=== PATIENT | male | born 1970 | race Caucasian/White ===

== ENCOUNTER 2020-10-29 20:56 | Emergency (ER) | payer BC, SELFPAY ==
[2020-10-29 20:58] VITALS: BP 159/113; PULSE 123; RESP 18; TEMP 36; O2SAT 100; BMI 37.3
[2020-10-29 21:11] VITALS: BP 152/106; PULSE 121; RESP 22; O2SAT 96
--- NOTE | 2020-10-29 21:14 | EKG12_ITS ---
Test Reason : CP Blood Pressure : / mmHG Vent. Rate : 119 BPM Atrial Rate : 119 BPM P-R Int : 146 ms QRS Dur : 116 ms QT Int : 348 ms P-R-T Axes : 056 -05 162 degrees QTc Int : 489 ms Sinus tachycardia Left ventricular hypertrophy with QRS widening and repolarization abnormality Abnormal ECG Confirmed by MING PRICE, FISH ([id number]), staff editor TIM GARRIDO ([id number]) on 11/02/2020 9:02:41 AM Referred By: NEAL Confirmed By:FISH LAI MD
--- NOTE | 2020-10-29 21:15 | NURSING ---
patient states he does not want any needles. Explained to him he is here for chest pain and we need to check labs andhave to poke him anyway so we will do an IV to make it so we have access if needed for meds and states he does not want it. Explained to him we can wait for the doctor but we will check a troponin and other labs d/t his complaint of chest pain and he states he does not think it is necessary and want to wait for the doctor.
[2020-10-29 21:17] VITALS: O2SAT 95
[2020-10-29] MEDS: Aspirin 81 MG TAB.CHEW 324 MG PO (21:20)
--- NOTE | 2020-10-29 21:23 | ED.RN ---
patient still states he wont do the labs and explained we need to do the labs for us to be able to rule out heart attack or other abnodmalities with blood counts. Patient states he does not want the tests and he understands we cannot rule it out and he has sx that need the labs for appropriate work up and feel it is in his best interest to get the labs and he states ge still does not want the labs.
--- NOTE | 2020-10-29 21:28 | ED.VIS.CHEST ---
HPI History of Present Illness Chief Complaint: Chest Pain Informant: patient Onset/Context/Timing Onset: Today Quality: Positive for Aching Location: Substernal Current Severity: Gone Maximum Severity: Mild Worsened By: Nothing Relieved By: Nothing Associated Symptoms: Negative for Nausea, Vomiting, Diaphoresis, Dyspnea, Cough, Fever, Lightheadedness and Acid Reflux Narrative Narrative: Middle-age male visiting family in this area. He is originally from [place]. States he is under a lot of stress. He has a history of methamphetamine use and is used within the last 12 hours. Complaining of chest discomfort. He denies any cardiac history other than CHF. Denies ever having an MN, CAD, CABG or stent. Denies any hemoptysis. Denies any leg pain or swelling. Patient seems paranoid. He is anxious. He denies any recent exertional dyspnea or exertional chest pain. States when he had the pain it was substernal. It is since resolved. He initially refused work-up. But then would allow us to do the work-up because he was looking for a safe place to stay. Prior Similar Symptoms: No Recent Illness/Hospitalization: Yes CVD Risk Factors: Positive for Hypertension and Diabetes PE Risk Factors: Positive for Recent Travel/Surgery; Negative for Prior DVT or PE and OCP + Smoking + >/=35 TAD Risk Factors: Positive for Hypertension; Negative for Marfan's Syndrome PFSH PFS Home Medications carvedilol 12.5 mg PO DAILY 10/29/20 [History Last Taken Unknown] furosemide [Lasix] 40 mg PO BID 10/29/20 [History Last Taken Unknown] lisinopril 40 mg PO BID 10/29/20 [History Last Taken Unknown] Allergy/AdvReac Type Severity Reaction Status Date / Time No Known Allergies Allergy Verified 10/29/20 21:03 Social History Smoking Status: Never smoker ROS ROS ED ROS Narrative Denies recent illness. Review of Systems ROS Unobtainable: Denies due to encephalopathy Constitutional Constitutional ED: Denies chills or fever(s) Eyes Eyes: Denies none or blurry vision ENT ENT ED: Denies ear pain Cardiovascular Cardiovascular: Reports as per HPI and chest pain; Denies palpitations Respiratory/Chest Respiratory/Chest: Denies cough or dyspnea Gastrointestinal Gastrointestinal: Denies abdominal pain, diarrhea, nausea or vomiting Genitourinary Genitourinary ED: Denies dysuria or hematuria Musculoskeletal Musculoskeletal: Denies myalgias Integumentary Denies rash Neurologic Neurologic: Denies headache(s) Psychiatric Psychiatric: Denies depression Endocrine Endocrinology: Denies polyuria Hematologic/Lymphatic Hematologic/Lymphatic: Denies easy bruising Allergic/Immunologic Allergic/Immunologic ED: Denies urticaria EXAM Physical Exam Narrative Exam Narrative: Middle-age male. Limited informant. He states that there is people after which is causing a lot of stress. He states it is a scam. Vital signs are stable he is tachycardic to 123. Initial blood pressure 159/113. Pulse ox 9%. HEENT exam unremarkable. Neck nontender no lymphadenopathy. No JVD. Lungs auscultation bilaterally. Heart tachycardic rate 120 no murmur. Chest were nontender. Abdomen soft nontender. Extremities moves all 4. Calves are nontender without edema or cords. Neurologically is awake and alert with no focal motor deficits. Const Vital Signs: 10/29/20 20:58 10/29/20 21:08 10/29/20 21:11 Temperature 96.8 F L Temperature Source Temporal Pulse Rate 123 H 121 H Respiratory Rate 18 22 H Respiratory Effort Non-Labored Blood Pressure 159/113 H 152/106 H Blood Pressure Mean 128 121 Pulse Ox 100 96 Oxygen Delivery Method Room Air Room Air 10/29/20 21:17 10/29/20 21:38 Temperature Temperature Source Pulse Rate 118 H Respiratory Rate 28 H Respiratory Effort Blood Pressure 162/140 H Blood Pressure Mean 147 Pulse Ox 95 96 Oxygen Delivery Method Room Air Room Air Positive well nourished and well developed General Appearance ED: well developed; Negative for pallor HEENT Reports moist mucous membranes normocephalic and atraumatic; Negative for trauma or tenderness Eyes PERRL and EOMs intact bilaterally Neck no lymphadenopathy, supple and no JVD General: Negative for tenderness Chest Wall inspection of chest normal and palpation of chest normal Resp normal respiratory effort and clear to auscultation bilaterally Effort and Inspection: respiratory distress Auscultation: Negative for rales, rhonchi or wheezes Cardio regular rhythm, S1 normal heart sound, S2 normal heart sound and no murmurs Rate: tachycardic GI normal to inspection, nondistended, normoactive bowel sounds, soft to palpation, non-tender and non-distended Back/Spine no CVA tenderness Extremity normal to inspection General Extremety ED: Negative for edema or tenderness General Extremity: Negative for edema Neuro oriented x3 Sensorium / Orientation: awake, alert, oriented to person, oriented to place and oriented to time Motor Exam: strength 5/5 throughout Psych Psych Narrative: Speaking about being under a lot of stress. Talking about people pressuring him for their own financial gain. Mood & Affect: anxious Skin no rashes or lesions noted and no wounds General Skin Exam: Negative for jaundice or pallor Heart Score History: Moderately Suspicious ECG: Nonspecific Repolarization Age: >45 - <65 years Risk Factors: 1 or 2 Risk Factors Score: 4 MDM MDM MDM Narrative Medical decision making narrative: Middle-age male anxious with atypical chest pain but concerning due to his age and risk factors. He also has used methamphetamines recently. He will undergo cardiac work-up. Nurses attempted IV on the first stick it was unsuccessful. Patient pulled away and would not let them attempt any further IV placement or lab draws. I went back to further discuss that with the patient prior to me being able to get back to speak with him he left without being discharged or signing out AGAINST MEDICAL ADVICE. Radiography Chest X-Ray - ED: 1 View, Read by ED Physician, Read by Radiologist, Heart, Lungs, Mediastinum, Bony Structures and No Acute Disease Diagnostic Testing: Radiology Impression Chest X-Ray 10/29/20 21:30 IMPRESSION: No acute radiographic abnormalities. Electronically Signed: Yoan Iverson MD at 22:08 EDT Tel , Service support , Rhythm Strip Rhythm Strip: Sinus Tach Rate: 119 Ectopy: None EKG Initial EKG: Attestation: I personally reviewed and interpreted this EKG as follows: Interpretation: Sinus Rhythm, No Acute Injury Pattern and Sinus Tachycardia Comments: Sinus tachycardia rate of 119. LVH. No old EKG available for comparison. Inverted T waves V3 through V6. Discharge Plan Triage Chief Complaint: Chest Pain ED Provider: Osorio Cobian Dx/Rx/DC Orders Clinical Impression: Acute chest pain, Left against medical advice, Methamphetamine abuse Prescriptions: No Action lisinopril 40 mg Tablet 40 mg PO BID RF: 0 furosemide [Lasix] 40 mg Tablet 40 mg PO BID RF: 0 carvedilol 12.5 mg Tablet 12.5 mg PO DAILY RF: 0 Primary Care Provider: Care Physician,No Primary Referrals: Care Physician,No Primary [Primary Care Provider] - Disposition Disposition: Elopement Discharge Date/Time: 10/29/20 22:47
--- NOTE | 2020-10-29 21:30 | RAD_ITS ---
INDICATION: chest pain EXAMINATION/TECHNIQUE: X-RAY - XR Chest 1 View COMPARISON: None. FINDINGS: The lungs are clear. The heart is enlarged. No pleural effusion or pneumothorax. No acute osseous abnormalities. RAD/Chest 1 View (Portable) IMPRESSION: No acute radiographic abnormalities. Electronically Signed: Yoan Iverson MD at 22:08 EDT Tel , Service support ,
[2020-10-29 21:38] VITALS: BP 162/140; PULSE 118; RESP 28; O2SAT 96
== END 2020-10-29 22:47 | disposition left against medical advice (07) ==
LOC: ED 22:11
PROVIDERS: Emergency Provider Emergency Medicine
DX: R07.89 Other chest pain (principal); Z53.29 Procedure and treatment not carried out because of patient's decision for other reasons; F15.10 Other stimulant abuse, uncomplicated; I11.0 Hypertensive heart disease with heart failure; I50.9 Heart failure, unspecified; E11.9 Type 2 diabetes mellitus without complications; Z79.899 Other long term (current) drug therapy
CPT/HCPCS: 71045; 93005; 99282; A4216

== ENCOUNTER 2020-11-15 02:00 | Emergency (ER) | payer BC, SELFPAY ==
[2020-11-15 02:00] VITALS: RESP 18; TEMP 36.4; BMI 38.0
--- NOTE | 2020-11-15 02:26 | EX.ED.DYSGE1 ---
HPI History of Present Illness Chief Complaint: Med Refill Informant: patient Onset/Context/Timing Onset: Weeks Narrative Narrative: 50-year-old male from [place]. States he has been out of his blood pressure medication which is lisinopril 40 mg twice a day. He just wants a refill. Patient would not allow the nurses to do vital signs and did not want anything else done just once his medications refilled. Patient admits to methamphetamine abuse. Prior similar symptoms: Yes Recent Illness/Hospitalization: No PFSH PFSH Home Medications carvedilol 12.5 mg PO DAILY 10/29/20 [History Last Taken Unknown] furosemide [Lasix] 40 mg PO BID 10/29/20 [History Last Taken Unknown] lisinopril 40 mg PO BID 10/29/20 [History Last Taken Unknown] lisinopril 40 mg PO DAILY #60 tab 11/15/20 [Rx Last Taken Unknown] Allergy/AdvReac Type Severity Reaction Status Date / Time No Known Allergies Allergy Verified 11/15/20 02:00 Social History Smoking Status: Never smoker ROS ROS ED ROS Narrative Denies. Review of Systems ROS Unobtainable: Denies due to encephalopathy Constitutional Constitutional ED: Denies chills or fever(s) Eyes Eyes: Denies change in vision ENT ENT ED: Denies ear pain or sore throat Cardiovascular Cardiovascular: Denies chest pain Respiratory/Chest Respiratory/Chest: Denies cough or dyspnea Gastrointestinal Gastrointestinal: Denies abdominal pain, diarrhea, nausea or vomiting Genitourinary Genitourinary ED: Denies dysuria Musculoskeletal Musculoskeletal: Denies myalgias Integumentary Denies rash Neurologic Neurologic: Denies headache(s) Psychiatric Psychiatric: Denies depression Endocrine Endocrinology: Denies polyuria Allergic/Immunologic Allergic/Immunologic ED: Denies urticaria EXAM Physical Exam Narrative Exam Narrative: Well-appearing middle-age male. Would not allow the nurses to do vital signs other than his initial temperature which was 97 6. He is in no distress. H EENT exam unremarkable. Neck nontender. No lymphadenopathy. Lungs clear to auscultation bilaterally. Heart regular rhythm no murmur. Abdomen soft nontender. Moving all 4 extremities. Const Vital Signs: 11/15/20 02:00 Temperature 97.6 F L Temperature Source Temporal Respiratory Rate 18 Positive well nourished and well developed General Appearance ED: well developed and NAD HEENT Reports moist mucous membranes Negative for trauma or tenderness Eyes PERRL and EOMs intact bilaterally Neck no lymphadenopathy, supple and no JVD General: Negative for tenderness Chest Wall inspection of chest normal and palpation of chest normal Resp normal respiratory effort and clear to auscultation bilaterally Auscultation: Negative for rales, rhonchi or wheezes Cardio regular rate, regular rhythm, S1 normal heart sound, S2 normal heart sound and no murmurs GI normal to inspection, nondistended, normoactive bowel sounds, non-tender and non-distended Auscultation: normoactive bowel sounds Palpation: soft Extremity normal to inspection General Extremety ED: Negative for edema or tenderness General Extremity: Negative for edema Neuro oriented x3, CN's II-XII intact bilaterally and no sensory deficits noted Sensorium / Orientation: alert; Negative for lethargic or stuporous Motor Exam: strength 5/5 throughout Psych mental status grossly normal Mood & Affect: Negative for depressed or tearful Skin no rashes or lesions noted and no wounds MDM MDM MDM Narrative Medical decision making narrative: Patient with a written prescription for lisinopril and discharged to home. Discharge Plan Triage Chief Complaint: Med Refill ED Provider: Osorio Cobian Dx/Rx/DC Orders Clinical Impression: Medication refill, Methamphetamine abuse, History of hypertension Instructions: Med Refill Prescriptions: New lisinopril 40 mg tablet 40 mg PO DAILY Qty: 60 RF: 0 No Action lisinopril 40 mg Tablet 40 mg PO BID RF: 0 furosemide [Lasix] 40 mg Tablet 40 mg PO BID RF: 0 carvedilol 12.5 mg Tablet 12.5 mg PO DAILY RF: 0 Primary Care Provider: Care Physician,No Primary Referrals: Shailesh Beal MD [NON-STAFF] - As Needed Care Physician,No Primary [Primary Care Provider] - Disposition Disposition: Home, Self Care
== END 2020-11-15 02:41 | disposition home or self-care (01) ==
PROVIDERS: Emergency Provider Emergency Medicine
DX: I10 Essential (primary) hypertension (principal); Z76.0 Encounter for issue of repeat prescription; F15.10 Other stimulant abuse, uncomplicated; Z79.899 Other long term (current) drug therapy
CPT/HCPCS: 99282

== ENCOUNTER 2020-11-17 23:28 | Emergency (ER) | payer BC, SELFPAY ==
[2020-11-17 23:30] VITALS: BP 150/90; PULSE 60; RESP 16; TEMP 36.3; O2SAT 98; BMI 38.0
--- NOTE | 2020-11-18 00:21 | EDS_ITS ---
HPI History of Present Illness Chief Complaint: Dental Informant: patient Onset/Context/Timing Onset: Today Context: Sudden Onset Timing: Continuous Quality: Pain Location: Left right lower molar Current Severity: Mild Maximum Severity: Severe Worsened by: Cold drink at [employer] Associated Symptoms Assocated Symptom - Dental: cold sensitivity; Negative for fever, jaw swelling, face swelling or hot sensitivity Narrative Narrative: Patient is a 50-year-old male with history of type 2 diabetes who is not seen a doctor in some time. He also has history of hypertension. Does not know what is A1c is. He denies a traumatic fever, heart murmur, SBE or being immune suppressed. He denies IV drug use. Review of prior record indicate he has history of methamphetamine abuse. Patient denies change in voice. Denies trouble swallowing. He denies difficulty opening closing his mouth. He denies cardiac respiratory symptoms. Denies nausea or vomiting. Prior similar symptoms: No Recent Illness/Hospitalization: No PFSH PFSH Medical History Diabetes Hypertension Home Medications carvedilol 12.5 mg PO DAILY 10/29/20 [History Last Taken Unknown] furosemide [Lasix] 40 mg PO BID 10/29/20 [History Last Taken Unknown] lisinopril 40 mg PO BID 10/29/20 [History Last Taken Unknown] metformin 1,000 mg PO BID 11/17/20 [History Last Taken Unknown] amoxicillin 500 mg PO TID #30 tab 11/18/20 [Rx Last Taken Unknown] hydrocodone-acetaminophen 1 tab PO Q6H PRN PRN 3 Days #10 tablet 11/18/20 [Rx Last Taken Unknown] Allergy/AdvReac Type Severity Reaction Status Date / Time No Known Allergies Allergy Verified 11/17/20 23:32 Social History (Updated 11/18/20 @ 00:[address] Brooks Jha MD) household members: none housing: apartment Smoking Status: Never smoker alcohol intake: current alcohol intake frequency: other substance use type: amphetamines ROS ROS ED Constitutional Constitutional ED: Denies chills, fever(s), subjective or sweats Eyes Eyes: Denies blurry vision or change in vision ENT ENT ED: Denies ear pain, rhinorrhea or sore throat Cardiovascular Cardiovascular: Denies chest pain, palpitations or racing heartbeat Respiratory/Chest Respiratory/Chest: Denies cough, dyspnea or dyspnea on exertion Gastrointestinal Gastrointestinal: Denies nausea or vomiting Neurologic Neurologic: Denies headache(s) or weakness Hematologic/Lymphatic Hematologic/Lymphatic: Denies easy bleeding or easy bruising EXAM Physical Exam Const Vital Signs: 11/17/20 23:30 Temperature 97.3 F L Temperature Source Temporal Pulse Rate 60 Respiratory Rate 16 Blood Pressure 150/90 H Blood Pressure Mean 110 Pulse Ox 98 Oxygen Delivery Method Room Air Positive well nourished, well developed and obese General Appearance ED: well developed Nutritional Appearance: obese HEENT Reports TM's clear HEENT Narrative: Patient has decay involving the pulp of tooth #15 and tooth #19. There is gingival irritation. There is no fluctuance. Patient has no trismus. Face and Sinus: sinuses nontender Tympanic Membrane ED: Yes TM's clear and TM abnormal Tympanic Membrane: TM abnormal Mouth ED: Yes oral and palatal mucosa normal, Yes lips normal, Yes tongue normal, Yes salivary gland normal and No mouth trauma Mouth: oral and palatal mucosa normal, lips normal, tongue normal, salivary gland normal and No mouth trauma Teeth and Gingiva: abnormal tooth and associated gingiva, caries, gingiva abnormal, poor dentition and teeth discoloration Throat: posterior oropharynx normal Eyes PERRL and EOMs intact bilaterally General Eye ED: Negative for pale conjunctiva Neck no lymphadenopathy, supple and no JVD Neck Narrative: There is no in-store expiratory stridor. There is no evidence of Ludewig's angina. General: normal visual inspection; Negative for anterior neck swelling, tenderness or submandibular swelling Lymph Lymphatic: no lymphadenopathy noted Chest Wall inspection of chest normal and palpation of chest normal Resp normal respiratory effort and clear to auscultation bilaterally Cardio regular rate, regular rhythm, S1 normal heart sound, S2 normal heart sound and no murmurs GI normal to inspection, nondistended, normoactive bowel sounds and non-tender Palpation: soft Extremity normal to inspection and no joint enlargement Neuro oriented x3 and CN's II-XII intact bilaterally Sensorium / Orientation: alert Psych mental status grossly normal MDM MDM MDM Narrative Medical decision making narrative: Patient with dental pain and probable apical abscess. He has significant dental caries. He was treated with amoxicillin and since he is diabetic with poorly controlled hypertension and concern for renal d isease he was treated with hydrocodone instead of NSAIDs. There is no evidence of Ludewig's angina. Discharge Plan Triage Chief Complaint: Dental ED Provider: Brooks Jha Dx/Rx/DC Orders Clinical Impression: Dental abscess, Dental caries extending into pulp, Symptomatic irreversible pul pitis, Type 2 diabetes mellitus Instructions: Dental Abscess Prescriptions: New hydrocodone-acetaminophen [hydrocodone-acetaminophen] 1 TABLET tablet 1 tab PO Q6H PRN PRN (Reason: Pain) 3 Days Qty: 10 RF: 0 amoxicillin 500 MG tablet 500 mg PO TID Qty: 30 RF: 0 No Action lisinopril 40 mg Tablet 40 mg PO BID RF: 0 furosemide [Lasix] 40 mg Tablet 40 mg PO BID RF: 0 carvedilol 12.5 mg Tablet 12.5 mg PO DAILY RF: 0 metformin 1,000 mg Tablet 1,000 mg PO BID RF: 0 Primary Care Provider: Care Physician,No Primary Referrals: Care Physician,No Primary [Primary Care Provider] -
[2020-11-18] MEDS: AMOXICILLIN 500 MG CAPSULE PO (00:44)
[2020-11-18] MEDS: HYDROcodone Bitartrate/Apap 5/325 Tablet PO (00:44)
[2020-11-18 00:46] VITALS: BP 150/90; PULSE 60; RESP 16; O2SAT 98
== END 2020-11-18 00:47 ==
LOC: ED 11-18 00:36
PROVIDERS: Emergency Provider Emergency Medicine
DX: K04.7 Periapical abscess without sinus (principal); K04.02 Irreversible pulpitis; K02.9 Dental caries, unspecified; E11.9 Type 2 diabetes mellitus without complications; I10 Essential (primary) hypertension; E66.9 Obesity, unspecified; Z79.84 Long term (current) use of oral hypoglycemic drugs; Z79.899 Other long term (current) drug therapy
CPT/HCPCS: 99283